=== PATIENT | male | born 1975 | race Caucasian/White ===

== ENCOUNTER 2016-12-17 07:35 | Day surgery (SDC) | payer OTHER ==
[2016-12-17] MEDS ORDERED: NALOXONE HCL INJ/PF 0.4 MG/1 ML SDV ONE (07:36)
[2016-12-17] MEDS ORDERED: FENTANYL CITRATE INJ/PF 100 MCG/2 ML AMPUL ONE ×2 (07:37→07:38)
[2016-12-17] MEDS ORDERED: PROMETHAZINE HCL INJ 25 MG/1 ML VIAL ONE (07:37)
[2016-12-17] MEDS ORDERED: ONDANSETRON HCL INJ/PF 4 MG/2 ML SDV ONE (07:37)
[2016-12-17] MEDS ORDERED: GLUCAGON,HUMAN RECOMB 1 MG INJ ONE (07:38)
[2016-12-17] MEDS ORDERED: EPINEPHRINE INJ 1 MG/10 ML DISP.SYRIN ONE (07:38)
[2016-12-17] MEDS ORDERED: FLUMAZENIL INJ 0.5 MG/5 ML VIAL IV ONE (07:38)
[2016-12-17 08:18] LABS: HEMATOCRIT 49.4 % (37.9-51.0); HEMOGLOBIN 16.5 g/dL (13.5-17.0); HGB HCT DIFFERENCE 0.1; MEAN CORPUSCULAR HEMOGLOBIN 30.8 pg (27.0-33.4); MEAN CORPUSCULAR HGB CONC 33.4 g/dL (32.0-36.0); MEAN CORPUSCULAR VOLUME 92 fl (80-97); RED BLOOD COUNT 5.35 10^6/uL (4.35-5.55); RED CELL DISTRIBUTION WIDTH 13.3 % (11.5-14.0); WHITE BLOOD COUNT 7.4 10^3/uL (4.0-10.5)
[2016-12-17] MEDS: MIDAZOLAM 2 MG/2 ML INJ ONE ×3 (08:45→08:54)
--- NOTE | 2016-12-17 09:26 | Operative Report ---
Operative Report DATE OF SURGERY: 12/17/16 PREOPERATIVE DIAGNOSIS: Family history of colon cancer. History of diverticulitis. POSTOPERATIVE DIAGNOSIS: Hepatic flexure polyp. Diverticulosis of the colon. OPERATION: Colonoscopy with cold polypectomy of hepatic flexure polyp SURGEON: ODELL BIRD ANESTHESIA: Moderate Sedation TISSUE REMOVED OR ALTERED: Hepatic flexure polyp COMPLICATIONS: None ESTIMATED BLOOD LOSS: minimal INTRAOPERATIVE FINDINGS: 3 mm polyp at the hepatic flexure. PROCEDURE: Informed consent was obtained. Patient was brought to the endoscopy suite. IV sedation with Versed and fentanyl was administered. Digital rectal exam revealed no palpable perianal masses. Endoscope was passed via the patient's anus it was fed to the cecum. The bowel prep was good. Visualization was good. The cecum appeared normal. There were scattered diverticuli of the right colon. At the hepatic flexure there was a 3 millimeter sessile polyp which was cold polypectomied with biopsy graspers. Specimen was submitted to pathology. The transverse colon, descending colon, sigmoid colon and multiple diverticuli. At what appeared to be colorectal anastomosis the anastomosis appeared well-healed. It was difficult to tell whether there was an anastomosis. Rectum appeared normal. Patient tolerated procedure well with no apparent complications and was taken to the recovery area in stable condition. Assessment: Pandiverticulosis. Hepatic flexure polyp status post successful cold polypectomy. I will follow-up with the patient in a couple weeks to discuss intraoperative findings and review the biopsy reports. Will determine timing of his next colonoscopy after pathology report returns. If patient has another episode of the severe abdominal pain, will consider a CT scan in light of his multiple diverticuli seen on colonoscopy.
--- NOTE | 2016-12-17 09:29 | PDOC DISCHARGE SUMMARY ---
Discharge Summary (SDC) - Discharge Final Diagnosis: Diverticulosis. Hepatic flexure polyp. Date of Surgery: 12/17/16 Discharge Date: 12/17/16 Condition: Good Treatment or Instructions: Colonoscopy with cold polypectomy of hepatic flexure polyp. May discharge patient home when met discharge criteria. Follow-up with me in 2 weeks. Stay active. May advance diet to regular diet at home. Discharge Diet: As Tolerated Discharge Activity: Activity As Tolerated Report the Following to Your Physician Immediately: Fever over 101 Degrees, Unusual Bleeding
[2016-12-17 10:27] VITALS: BP 115/82
== END 2016-12-17 10:15 | disposition home or self-care (01) ==
LOC: END 07:35
PROVIDERS: ATTEND Surgery
PROC: 0DBE8ZX Excision of Large Intestine, Via Natural or Artificial Opening Endoscopic, Diagnostic (ICD-10-PCS; principal; 2016-12-17 08:45)
DX: K63.5 Polyp of colon (principal); K57.30 Diverticulosis of large intestine without perforation or abscess without bleeding; Z80.0 Family history of malignant neoplasm of digestive organs; Z87.19 Personal history of other diseases of the digestive system; Z90.49 Acquired absence of other specified parts of digestive tract
CPT/HCPCS: 45380; 36415; 85027; 88305 ×2; J2250; J3010; J0171; J1610; J2310; J2405; J2550; J3490